=== PATIENT | male | born 1955 | race African-American/Black ===

== ENCOUNTER 2019-11-23 06:41 | Emergency (ER) | payer BC, OTHER ==
[2019-11-23 06:58] VITALS: BP 164/79; PULSE 83; TEMP 97.7; BMI 26.4
--- NOTE | 2019-11-23 07:09 | PDOC ---
History of Present Illness - General Chief Complaint: Lightheaded Stated Complaint: HYPERTENSION Time Seen by Provider: 11/23/19 07:08 - History of Present Illness Initial Comments: 11/23/19 07:09 HPI: 64 y/o M with hx of HTN and panic attacks presenting with dizziness since he woke up at 5am. Reports severe "spinning sensation" upon waking up associated with nausea. Never had symptoms before. Had 2 episodes of emesis in EMS en route. Dizziness is persistent at the bedside and is improved when he lays down and eyes closed. When he tries to get up or move his head the symptoms worsen. He denies fever, chills, neck pain, ROCA, chest pain, SOB, abd pain, diaphoresis, dysuria, diarrhea, weakness, syncope. at the bedside denies pallor. She reports manual BP at home was 190/110 which is abnormal for him. She also reports he occasionally wakes up in the middle of the night with panic attacks and gasping for air. PMHx: as noted above ROS: as noted SHx: Denies tobacco use; no alcohol use; no rec drugs Allergies: NKDA ROS: GENERAL/CONSTITUTIONAL: No fever or chills. No weakness. HEAD, EYES, EARS, NOSE AND THROAT: No change in vision. No ear pain or discharge. No sore throat. CARDIOVASCULAR: No chest pain or shortness of breath RESPIRATORY: No cough, wheezing, or hemoptysis. GASTROINTESTINAL: +nausea, vomiting; no diarrhea or constipation. GENITOURINARY: No dysuria, frequency, or change in urination. MUSCULOSKELETAL: No joint or muscle swelling or pain. No neck or back pain. SKIN: No rash NEUROLOGIC: +vertigo; No headache, loss of consciousness, or change in strength/sensation. ENDOCRINE: No increased thirst. No abnormal weight change HEMATOLOGIC/LYMPHATIC: No anemia, easy bleeding, or history of blood clots. ALLERGIC/IMMUNOLOGIC: No hives or skin allergy. PE: GENERAL: Awake, alert, and fully oriented, no acute distress HEAD: No signs of trauma, normocephalic, atraumatic EYES: EOMI, sclera anicteric, conjunctiva clear ENT: Auricles normal inspection, hearing grossly normal, very minimal fluid b ehind right TM but non injected and no cerumen impaction, nares patent, oropharynx clear without exudates. Moist mucosa NECK: Normal ROM, no lymphadenopathy LUNGS: No increased work of breathing, symmetrical chest rise, clear to auscultation bilaterally, no wheezes, crackles or rhonchi HEART: Regular rate, regular rhythm, normal S1 and S2, no murmur, peripheral pulses 2+ and equal bilaterally. ABDOMEN: Soft, nondistended, nontender. No guarding, no rebound. No masses. No CVAT MUSCULOSKELETAL: FROM NEUROLOGICAL: Cranial nerves II through XII grossly intact. Normal speech, stable gait, no focal sensorimotor deficits. No FTN or HTS ataxia SKIN: Warm, Dry, normal turgor, no rashes or lesions noted Past History - Medical History Allergies/Adverse Reactions: Allergies Allergy/AdvReac Type Severity Reaction Status Date / Time No Known Allergies Allergy Verified 11/23/19 06:50 Home Medications: Ambulatory Orders Meclizine HCl 25 mg PO AM PRN #20 tablet 11/23/19 COPD: No HTN: Yes - Psycho-Social/Smoking History Smoking History: Never smoked - Substance Abuse Hx (Audit-C & DAST Scrn) How often the patient has a drink containing alcohol: Never Score: In Men: 4 or > Positive; In Women: 3 or > Positive: 0 Screen Result (Pos requires Nsg. Audit-10AR): Negative In the last yr the pt used illegal drug/Rx for NonMed reason: No Score: Yes response is considered Positive: 0 Screen Result (Positive result requires Nsg. DAST-10): Negative *Physical Exam - Vital Signs Last Vital Signs Temp Pulse Resp BP Pulse Ox 97.7 F 83 20 164/79 100 11/23/19 06:48 11/23/19 06:48 11/23/19 06:48 11/23/19 06:48 11/23/19 06:48 ED Treatment Course - LABORATORY CBC & Chemistry Diagram: 11/23/19 07:36 11/23/19 07:36 Medical Decision Making - Medical Decision Making 11/23/19 08:06 64 y/o M with hx of HTN and panic attacks presenting with dizziness since he woke up at 5am described as spinning sensation associated with nausea and emesis. BP 164/79 O2 100%. Patient was observed on more than one occasion to doze off and became bradypnic with sats decreased to 80% with good waveform. DDx includes BPPV, cerebellar stroke, arrythmia, PIERO, covid -cbc, cmp, card prof, coags, t&s, ekg, cxr, ct head -ivf, lizet, bglizine -reassess 11/23/19 11:[address] negative ekg nsr with no musa/d cxr with no acute pathology patient ambulating without symptoms or assist will dc with pulm and neuro referrals and meclizine Discharge - Discharge Information Problems reviewed: Yes Clinical Impression/Diagnosis: Vertigo Condition: Improved Disposition: HOME - Additional Discharge Information Prescriptions: Meclizine HCl 25 mg PO AM PRN #20 tablet PRN Reason: Vertigo - Follow up/Referral Referrals: Winston Clay MD [Staff Physician] - Zi Weeks MD [Staff Physician] - - Patient Discharge Instructions Patient Printed Discharge Instructions: DI for Benign Paroxysmal Positional Vertigo Additional Instructions: You were seen in the ER today for dizziness (Vertigo). The results of your labs and imaging today were normal, other than a slightly high white blood cell count (14) which was likely due to your recent vomiting. Please follow-up with your primary care doctor, neurology, and pulmonology (for a sleep study) within 1-2 days to discuss your visit and make sure your symptoms have improved. Please re turn to the ER if you have any worsening dizziness, worsening headache, neck pain, or changes to your vision, development of fevers or chills, loss of consciousness, inability to tolerate food or fluids, or any other concerns. I have sent medications to your pharmacy. Please take these medications as prescribed. - Post Discharge Activity
[2019-11-23] MEDS ORDERED: ONDANSETRON 4 MG/2 ML VIAL IVPUSH ONE (07:19)
[2019-11-23] MEDS ORDERED: SODIUM CHLORIDE 1,000 ML IV STA (07:19)
--- NOTE | 2019-11-23 07:23 | PDOC ---
Attending Attestation - Resident Resident Name: Rabia Mercado - ED Attending Attestation I have performed the following: I have examined & evaluated the patient, The case was reviewed & discussed with the resident, I agree w/resident's findings & plan, Exceptions are as noted - HPI HPI: 11/23/19 07:22 64y M hx of HTN presenting with room spinning dizziness when wakening this morning. Patient was in his usual usual state of health Until this morning when he felt room spinning dizziness upon waking up, States that he felt like he was drunk, staggering around when he was ambulating associated with no nausea and vomiting. He denies any associated recent trauma, any headache, neck pain, chest pain, palpittions, back pain, focal numbness, tingling, weakness, double vision, dysarthria. Patient has never had any symptoms like this in the past. Denies any Recent illness, fever, chills, cough, body aches, sob. States that the symptoms are worse with ambulation and when he moves his head, states that when he is at rest And laying down the dizziness resolves. - Physicial Exam PE: 11/23/19 08:44 GENERAL: The patient is awake, alert, and fully oriented, Nontoxic - in no acute distress. HEAD: Normocephalic, atraumatic. EYES: extraocular movements intact, sclera anicteric, conjunctiva clear. ENT: Normal voice, Moist mucous membranes. NECK: Normal range of motion, supple LUNGS: Breath sounds equal, clear to auscultation bilaterally. No wheezes, no rhonchi, no rales. HEART: Regular rate and rhythm, normal S1 and S2 without murmur, rub or gallop. ABDOMEN: Soft, nontender, No guarding, no rebound. No CVA tenderness EXTREMITIES: Normal range of motion, no edema. NEUROLOGICAL: Normal speech, Normal finger-nose, normal rapid alternating movements, CN II-XII intact, strength in upper in lower extremities symmetric PSYCH: Normal mood, normal affect. SKIN: Warm, Dry, normal turgor, - Medical Decision Making 11/23/19 09:31 suspect peripheral vertigo no cerrebellar findings and neuro exam unremarkable will obtain blood work to screen for arrythmia and metabolic derangement ekg to screen for arrythmia ct head meclizine/antiemetic for sx relief will reasesss 11/23/19 09:55 pt feeling better, asymptomatic abmuating with a normal gait no neuro deficits on reasessment will dc with neuro fu pt has complaints of likely PIERO - will refer to pulm for sleep study Heart Score/ECG Review - ECG Impressions Comment:: 11/23/19 09:32 Twelve-lead EKG was performed and reviewed by me. There is normal sinus rhythm with a normal rate. Rate of 68 The axis is normal. The intervals are normal. There is normal R wave progression Nonspecific T wave abnormality Discharge - Discharge Information Problems reviewed: Yes Clinical Impression/Diagnosis: Vertigo Condition: Improved Disposition: HOME - Additional Discharge Information Prescriptions: Meclizine HCl 25 mg PO AM PRN #20 tablet PRN Reason: Vertigo - Follow up/Referral Referrals: Winston Clay MD [Staff Physician] - Zi Weeks MD [Staff Physician] - - Patient Discharge Instructions Patient Printed Discharge Instructions: DI for Benign Paroxysmal Positional Vertigo Additional Instructions: You were seen in the ER today for dizziness (Vertigo). The results of your labs and imaging today were normal, other than a slightly high white blood cell count (14) which was likely due to your recent vomiting. Please follow-up with your primary care doctor, neurology, and pulmonology (for a sleep study) within 1-2 days to discuss your visit and make sure your symptoms have improved. Please return to the ER if you have any worsening dizziness, worsening headache, neck pain, or changes to your vision, development of fevers or chills, loss of consciousness, inability to tolerate food or fluids, or any other concerns. I have sent medications to your pharmacy. Please take these medications as prescribed. - Post Discharge Activity
[2019-11-23] MEDS ORDERED: MECLIZINE HCL 25 MG TABLET (FP) PO ONE (07:26)
[2019-11-23] MEDS ORDERED: MECLIZINE HCL 25 MG TABLET (FP) ONE (07:48)
[2019-11-23 08:24] LABS: BASO % 0.3 % (0-2.0); EOS % 0.1 % (0-4.5); HEMATOCRIT 40.9 % (35.4-49); HEMOGLOBIN 13.6 GM/dL (11.7-16.9); LYMPH % 8.9 % (8-40); MCH 31.2 pg (25.7-33.7); MCHC 33.1 g/dl (32.0-35.9); MEAN CELL VOLUME 94.1 fl (80-96); MONO % 6.8 % (3.8-10.2); NEUT % 83.9 % (42.8-82.8); PLATELET COUNT 203 K/MM3 (134-434); RBC 4.35 M/mm3 (4.00-5.60); RDW 12.6 % (11.9-15.9); WHITE BLOOD COUNT 14.8 K/mm3 (4.0-10.0)
[2019-11-23 08:41] LABS: URINE APPEARANCE CLEAR; URINE BILIRUBIN NEGATIVE (NEGATIVE); URINE COLOR YELLOW; URINE GLUCOSE (UA) 2+ (NEGATIVE); URINE KETONE TRACE (NEGATIVE); URINE LEUK ESTERASE NEGATIVE (NEGATIVE); URINE NITRITE NEGATIVE (NEGATIVE); URINE PROTEIN NEGATIVE (NEGATIVE); URINE UROBILINOGEN 0.2 mg/dL (0.2-1.0)
[2019-11-23 08:59] LABS: ALBUMIN 3.9 g/dl (3.4-5.0); ALK PHOS 106 U/L (45-117); ANION GAP 11 MMOL/L (8-16); BILIRUBIN,TOTAL 0.8 mg/dL (0.2-1); BLOOD UREA NITROGEN 20.8 mg/dL (7-18); CALCIUM 8.6 mg/dL (8.5-10.1); CHLORIDE 105 mmol/L (98-107); CO2 23 mmol/L (21-32); CREATININE 1.2 mg/dL (0.55-1.3); GLUCOSE,RANDOM 168 mg/dL (74-106); MAGNESIUM 2.3 mg/dL (1.8-2.4); POTASSIUM 4.9 mmol/L (3.5-5.1); SGOT/AST 44 U/L (15-37); SGPT/ALT 27 U/L (13-61); SODIUM 138 mmol/L (136-145); TOT PROT 7.7 g/dl (6.4-8.2)
--- NOTE | 2019-11-23 11:54 | EKG ---
Test Reason : Blood Pressure : / mmHG Vent. Rate : 068 BPM Atrial Rate : 068 BPM P-R Int : 174 ms QRS Dur : 082 ms QT Int : 424 ms P-R-T Axes : 062 035 046 degrees QTc Int : 450 ms NORMAL SINUS RHYTHM MINIMAL VOLTAGE CRITERIA FOR LVH, MAY BE NORMAL VARIANT NONSPECIFIC T WAVE ABNORMALITY NO PREVIOUS ECGS AVAILABLE Confirmed by AUGUSTINA ROMERO MD ([id number]) on 11/23/2019 11:53:59 AM Referred By: Confirmed By:AUGUSTINA ROMERO MD
== END 2019-11-23 10:08 | disposition home or self-care (01) ==
LOC: JER 06:41
PROC: 3E0333Z Introduction of Anti-inflammatory into Peripheral Vein, Percutaneous Approach (ICD-10-PCS; principal; 2019-11-23)
PROC: 3E0337Z Introduction of Electrolytic and Water Balance Substance into Peripheral Vein, Percutaneous Approach (ICD-10-PCS; 2019-11-23)
DX: H81.11 Benign paroxysmal vertigo, right ear (principal)
CPT/HCPCS: 36415; 70450-TC; 80053; 81003; 82550; 82553; 82962; 83036; 83735; 84484; 85025; 86850; 86900; 86901; 93005; 93010; 99285-25